=== PATIENT | female | born 1975 | race Caucasian/White ===

== ENCOUNTER 2017-04-04 19:03 | Emergency (ER) | payer SELFPAY ==
--- NOTE | 2017-04-04 20:01 | ED.PDOC ---
History of Present Illness - General Chief Complaint: Fever Stated Complaint: fever, body aches, ear pain Time Seen by Provider: 04/04/17 19:28 Source: RN notes reviewed Exam Limitations: no limitations - History of Present Illness Timing/Duration: other - FOUR DAYS Fever Severity/Quality: low grade Associated Symptoms: cough, muscle aches, nausea/vomiting, sore throat Review of Systems - Review of Systems Constitutional: States: fever, malaise EENTM: States: no symptoms reported Respiratory: States: cough, short of breath Cardiology: States: no symptoms reported Gastrointestinal/Abdominal: States: nausea Genitourinary: States: no symptoms reported Musculoskeletal: States: no symptoms reported Skin: States: no symptoms reported Neurological: States: no symptoms reported Endocrine: States: no symptoms reported Hematologic/Lymphatic: States: no symptoms reported Past Medical History (General) - Patient Medical History Hx Asthma: Yes Hx of COPD: Yes Hx Hypertension: Yes Hx Thyroid Disease: Yes - Vaccination History Hx Tetanus, Diphtheria Vaccination: No Hx Influenza Vaccination: No Hx Pneumococcal Vaccination: No - Social History Hx Tobacco Use: Yes Hx Alcohol Use: No Hx Substance Use: No Family Medical History - Family History Mother Family History: Unknown Physical Exam - Physical Exam General Appearance: Alert, Ill Appearing Eye Exam: bilateral normal ENT Exam: normal ENT inspection, TMs normal, pharynx normal Neck: non-tender, full range of motion, supple Respiratory: chest non-tender, lungs clear, normal breath sounds, no respiratory distress, no accessory muscle use Cardiovascular/Chest: normal peripheral pulses, regular rate, rhythm, no edema, no gallop, no JVD Gastrointestinal/Abdominal: normal bowel sounds, non tender, soft, no organomegaly, no pulsatile mass Extremity: normal range of motion, non-tender, normal inspection Neurologic: no motor/sensory deficits, normal mood/affect, oriented x 3 Skin Exam: normal color Lymphatic: no adenopathy Progress - Results/Orders Results/Orders: laboratory is reported: influenza panel is negative, THE UA IS NEGATIVE AND THE CXR NEGATIVE FOR INFILTRATE. THE BP IS NOW 150/91. Departure - Departure Clinical Impression: Flu-like symptoms Acute bronchitis Qualifiers: Bronchitis organism: other organism Qualified Code(s): J20.8 - Acute bronchitis due to other specified organisms Hypertension Qualifiers: Hypertension type: essential hypertension Qualified Code(s): I10 - Essential ( primary) hypertension Time of Disposition: 21:32 Disposition: Discharge to Home or Self Care Condition: Fair Departure Forms: ED Discharge - Pt. Copy, Patient Portal Self Enrollment Instructions: DI for Acute Bronchitis Diet: resume usual diet Activity: ambulate only with walker Prescriptions: Azithromycin [Zithromax Z-Dominick] 1 ea PO DAILY #1 pack Dextromethorphan-Guaifenesin [Delsym Cough + Chest Frank 5-100 mg/5Ml] 10 ml PO BID #60 liq Lisinopril 20 mg PO DAILY #30 tab Home Medications: Ambulatory Orders Albuterol Sulfate Nebs [Proventil Nebs] 2.5 mg INH QID #20 vial 09/28/13 Amoxicillin & Pot Clavulanate [Augmentin] 875 mg PO BID #20 tab 09/28/13 Meloxicam [Mobic] 15 mg PO DAILY #20 tab 09/28/13 Azithromycin [Zithromax Z-Dominick] 1 ea PO DAILY #1 pack 04/04/17 Dextromethorphan-Guaifenesin [Delsym Cough + Chest Frank 5-100 mg/5Ml] 10 ml PO BID #60 liq 04/04/17 Lisinopril 20 mg PO DAILY #30 tab 04/04/17
[2017-04-04 20:05] VITALS: O2SAT 97
[2017-04-04] MEDS ORDERED: cloNIDine HCL 0.1 MG TAB ONE (20:09)
[2017-04-04] MEDS ORDERED: cloNIDine HCL 0.1 MG TAB PO ONE (20:09)
--- NOTE | 2017-04-04 20:22 | RAD ---
EXAM DESCRIPTION: Chest,1 View CLINICAL HISTORY: 41 years Female SOB, COUGH AND FEVER COMPARISON: 07/02/2009 FINDINGS: The cardiomediastinal silhouette appears unremarkable. No consolidating infiltrates or pleural effusions. No pneumothorax. IMPRESSION: No acute abnormality is identified. Electronically signed by: Karo Alvarez MD 04/04/2017 8:21 PM TOOTH CUTTER
[2017-04-04] MEDS: cefTRIAXone SODIUM 1 GM VIAL IM ONE ×2 (21:37→21:45)
[2017-04-04 22:05] VITALS: BP 143/93; TEMP 97.8
== END 2017-04-04 21:58 | disposition home or self-care (01) ==
LOC: ER 19:03
DX: J20.8 Acute bronchitis due to other specified organisms (principal); I10 Essential (primary) hypertension; J44.9 Chronic obstructive pulmonary disease, unspecified; E07.9 Disorder of thyroid, unspecified; Z87.891 Personal history of nicotine dependence
CPT/HCPCS: 71045; 81001; 87804; J0696

== ENCOUNTER → 2018-02-14 | Outpatient (CLI) | payer OTHER | LOC: YCFC.O 12:19 | PROVIDERS: ATTEND Family Medicine | DX: R30.0 Dysuria (principal) ==

== ENCOUNTER 2018-03-23 16:46 | Emergency (ER) | payer OTHER ==
[2018-03-23 17:06] VITALS: TEMP 97.9
[2018-03-23] MEDS ORDERED: NEOMYCIN-BACITRACIN-POLYMYXIN 0.9 GM UD TOP ONE (17:15)
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
[2018-03-23 18:41] VITALS: BP 142/92; O2SAT 98
== END 2018-03-23 17:39 | disposition home or self-care (01) ==
LOC: ER 16:46
DX: S51.831A Puncture wound without foreign body of right forearm, initial encounter (principal); E07.9 Disorder of thyroid, unspecified; J44.9 Chronic obstructive pulmonary disease, unspecified; I10 Essential (primary) hypertension; Z87.891 Personal history of nicotine dependence; Z79.899 Other long term (current) drug therapy; X78.8XXA Intentional self-harm by other sharp object, initial encounter; Y92.149 Unspecified place in prison as the place of occurrence of the external cause; Z88.1 Allergy status to other antibiotic agents; Z88.5 Allergy status to narcotic agent; Z88.6 Allergy status to analgesic agent

== ENCOUNTER 2019-09-26 13:12 | Emergency (ER) | payer OTHER ==
[2019-09-26] MEDS ORDERED: NEOMYCIN-BACITRACIN-POLYMYXIN 0.9 GM UD TOP ONE (13:29)
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
[2019-09-26 13:39] VITALS: BP 148/89; TEMP 98.7; O2SAT 98
== END 2019-09-26 13:48 ==
LOC: ER 13:12
DX: F31.30 Bipolar disorder, current episode depressed, mild or moderate severity, unspecified (principal); S51.832A Puncture wound without foreign body of left forearm, initial encounter; S51.831A Puncture wound without foreign body of right forearm, initial encounter; I10 Essential (primary) hypertension; J44.9 Chronic obstructive pulmonary disease, unspecified; E07.9 Disorder of thyroid, unspecified; Z87.891 Personal history of nicotine dependence; X78.8XXA Intentional self-harm by other sharp object, initial encounter; Y92.149 Unspecified place in prison as the place of occurrence of the external cause; Z79.899 Other long term (current) drug therapy; Z88.5 Allergy status to narcotic agent; Z88.6 Allergy status to analgesic agent; Z88.2 Allergy status to sulfonamides; Z88.1 Allergy status to other antibiotic agents